=== PATIENT | male | born 1980 | race Caucasian/White ===

== ENCOUNTER 2022-09-07 11:55 | Emergency (ER) | payer MEDICARE, SELFPAY ==
[2022-09-07 11:56] VITALS: BP 131/93; PULSE 99; RESP 18; TEMP 36.6; O2SAT 100; BMI 23.0
--- NOTE | 2022-09-07 12:07 | CT_ITS ---
EXAM: CT ABDOMEN AND PELVIS WITH INTRAVENOUS CONTRAST CLINICAL INDICATION: Left upper quadrant abdominal pain. TECHNIQUE: Helically acquired images were obtained of the abdomen and pelvis with intravenous contrast. This CT exam was performed using one or more of the following dose reduction techniques: automated exposure control, adjustment of the mA and/or kV according to patient size, and/or use of iterative reconstruction technique. This report was created using [employer] report generation technology. CONTRAST: IV 100mL Isovue-370 RADIATION DOSE: CTDIvol = 13.35 mGy, DLP = 257.08 mGy-cm COMPARISON: None. FINDINGS: LOWER THORAX: Unremarkable. Lung bases are clear. No cardiomegaly. No significant pericardial effusion. ABDOMEN: LIVER: Unremarkable. Homogeneous. No focal mass. GALLBLADDER AND BILE DUCTS: Unremarkable. No calcified gallstones. No gallbladder distention or wall edema. No intra- or extrahepatic biliary ductal dilation. PANCREAS: Unremarkable. No focal cystic or solid mass. SPLEEN: Unremarkable. Normal size without focal cystic or solid mass. ADRENALS: Unremarkable. No nodules. KIDNEYS AND URETERS: Unremarkable. Normal renal size and position. No hydronephrosis. STOMACH AND BOWEL: Unremarkable. No stomach or bowel distention. No focal inflammatory change. PELVIS: APPENDIX: Postsurgical absence of the appendix. BLADDER: Unremarkable. REPRODUCTIVE: Unremarkable as visualized. No mass. ABDOMEN and PELVIS: INTRAPERITONEAL SPACE: Unremarkable. No ascites or other fluid collection. No free air. BONES/JOINTS: Unremarkable. No suspicious lytic or blastic abnormality. SOFT TISSUES: Unremarkable. No discrete abdominal or pelvic wall hernia. VASCULATURE: Unremarkable. Abdominal aorta is non-dilated. LYMPH NODES: Unremarkable. No enlarged lymph nodes. CT/Abdomen/Pelvis W IV Cont ONLY IMPRESSION: No acute findings in the abdomen or pelvis. Electronically Signed: Faustino Jha MD at 13:39 EDT ,
--- NOTE | 2022-09-07 12:08 | EDS_ITS ---
HPI HPI - GI History of Present Illness Chief Complaint: Abd Pain Detail of Chief Complaint: 4 months. Informant: patient Abdominal Pain/Flank Pain Onset: Month(s) Context: Gradual Onset Timing: Intermittent Quality: Aching and Cramping Location: Epigastric and LUQ Current Severity: Moderate Maximum Severity: Moderate Worsened by: Nothing Relieved by: Nothing Nausea/Vomiting/Emesis GI Symptom: Positive for Nausea and Vomiting Onset: Month(s) Quality: Positive for Nonbilious Severity: Moderate Diarrhea/Melena/Hematochezia GI Symptom: Positive for Diarrhea; Negative for Melena or Hematochezia Onset: Today Stool Quality: Positive for Loose Severity: Mild Associated Symptoms Associated Symptoms: Negative for Dysuria, Frequency or Hematuria Narrative Narrative: 41-year-old male history of reflux sympathetic dystrophy of his left lower extremity from prior foot fracture. States for months he has had abdominal pain primarily epigastric left upper quadrant and weight loss. He states the last 2 to 3 months he is lost 100 pounds unintentionally. Has had nausea and vomiting episodes since May. In May he was admitted to [facility] had CAT scan, labs and a colonoscopy without any specific diagnosis. He has had a prior appendectomy no other abdominal surgeries. States there is a family history of Crohn's disease both in his grand mother and his father. He denies any fever. Denies any dysuria. Currently is not nauseated but he is having pain. Prior similar symptoms: Yes Recent Illness/Hospitalization: Yes PFSH PFSH Home Medications pantoprazole 40 mg tablet,delayed release (Protonix) 40 mg PO DAILY 14 days #14 tabs 09/07/22 [Rx Last Taken Unknown] Allergy/AdvReac Type Severity Reaction Status Date / Time No Known Allergies Allergy Verified 09/07/22 11:56 Social History Smoking Status: Current every day smoker tobacco type: cigarettes ROS ROS ED ROS Narrative Nausea and vomiting for months. 100 pound weight loss. Loose stools today. No fever. Review of Systems ROS Unobtainable: Denies due to encephalopathy Constitutional Constitutional ED: Denies chills or fever(s) ENT ENT ED: Denies ear pain Cardiovascular Cardiovascular: Denies chest pain Respiratory/Chest Respiratory/Chest: Denies cough or dyspnea Gastrointestinal Gastrointestinal: Reports abdominal pain, diarrhea, nausea and vomiting; Denies constipation or melena Genitourinary Genitourinary ED: Denies hematuria Musculoskeletal Musculoskeletal: Denies arthralgias Integumentary Denies abscess Neurologic Neurologic: Denies headache(s) Psychiatric Psychiatric: Denies anxiety Endocrine Endocrinology: Denies polydipsia or polyphagia Hematologic/Lymphatic Hematologic/Lymphatic: Denies easy bleeding Allergic/Immunologic Allergic/Immunologic ED: Denies mouth swelling or tongue swelling EXAM Physical Exam Narrative Exam Narrative: 41-year-old male vital signs are stable afebrile. He does not look septic or toxic. He is in no distress. H EENT exam unremarkable. Neck nontender no lymphadenopathy. Lungs clear to auscultation bilaterally. Heart regular rhythm no murmur. Rate about 95. Chest wall nontender. Abdomen is soft. Nondistended. Normal bowel sounds no peritoneal signs. He has pain out of proportion to exam in both his epigastric and primarily left upper quadrant. I do not feel any organomegaly or masses. His right upper and right lower quadrants are unremarkable. There is no hernia. No distention or signs of obstruction. Moving all 4 extremities. Nontender no edema. Back nontender. Neurologically he is awake and alert. He is anxious. He has no focal motor deficits. Const Vital Signs: 09/07/22 11:56 Temperature 97.8 F Temperature Source Temporal Pulse Rate 99 Respiratory Rate 18 Blood Pressure 131/93 H Blood Pressure Mean 105 Pulse Ox 100 Oxygen Delivery Method Room Air Positive well nourished and well developed; Negative for obese, cachectic, contractures or unkempt General Appearance ED: well developed and NAD; Negative for unkempt, cachectic, contractures or pallor Nutritional Appearance: Negative for cachectic or obese HEENT Reports moist mucous membranes normocephalic and atraumatic; Negative for trauma or tenderness Eyes PERRL and EOMs intact bilaterally General Eye ED: Negative for pale conjunctiva or scleral icterus Neck no lymphadenopathy, supple and no JVD General: Negative for tenderness Carotids: Negative for other Lymph Lymphatic: Negative for other Resp normal respiratory effort and clear to auscultation bilaterally Effort and Inspection: Negative for respiratory distress Auscultation: Negative for rales, rhonchi or wheezes Cardio regular rate, regular rhythm, S1 normal heart sound, S2 normal heart sound and no murmurs Rate: Negative for bradycardia or tachycardic Rhythm: Negative for abnormal rhythm GI non-tender; Negative for non-distended or no masses GI Narrative: Epigastric and left upper quadrant tenderness. Soft benign abdomen. Inspection: abdominal distention Auscultation: normoactive bowel sounds Palpation: soft and tender; Negative for guarding, rigid, hepatomegaly, splenomegaly, hernia, mass, pulsatile mass or rebound tenderness present Back/Spine no CVA tenderness General Back: Negative for CVA tenderness Cervical Spine: Negative for cervical spine tenderness Thoracic Spine / Upper Back: Negative for thoracic spinal tenderness Lumbar Spine / Lower Back: Negative for lumbar spinal tenderness Coccyx: Negative for other Extremity full ROM General Extremety ED: Negative for edema or tenderness General Extremity: Negative for edema Neuro CN's II-XII intact bilaterally, moves all extremities and no sensory deficits noted Sensorium / Orientation: alert, oriented to person, oriented to place and oriented to time; Negative for orientation impaired, confused, lethargic or stuporous Motor Exam: strength 5/5 throughout Psych mental status grossly normal and thought process normal Appearance: Negative for unkempt Attitude: No agitated Mood & Affect: Negative for depressed, anxious or tearful Skin no wounds General Skin Exam: Negative for jaundice or pallor Lesions: no lesions Rashes: no rashes Trauma: Negative for abrasion Nails: Negative for discolored MDM MDM MDM Narrative Medical decision making narrative: 41-year-old male months of abdominal pain with reported 100 pound weight loss in the last 2 to 3 months. His pain is out of proportion exam of both epigastric and left upper quadrant. He has a soft nondistended abdomen. I do not appreciate any hepatomegaly or splenomegaly. We treated with Toradol for pain. Fluid bolus. Screening labs and a CAT scan. He reportedly had a work-up done in another hospital near [place] in May which was unremarkable. Repeat exam at 1:05 PM patient's abdomen is benign but is complaining of pain and tearful. He was already given Toradol. I do not think narcotics at this time are a good idea given his get completely unremarkable labs. I am waiting for the CAT scan results which I already reviewed and are waiting for the radi ologist interpretation. . Repeat exam at 1:55 PM patient doing fine. His abdomen is completely benign. Nondistended. Complains the left upper quadrant pain is not reproducible. I went over all his test with him including all the blood work and his CAT scan. He will be discharged home on Protonix. Follow-up with Dr. Aguirre of GI. He may or may not need upper scope. Lab Data Attestation: I reviewed the patient's lab results. Lab results narrative: CBC unremarkable. White count is 16.3 H&H is 16.8 and 49. Platelets 282. Electrolytes unremarkable gap at 2 normal BUN of 17 creatinine 1.15. Liver enzymes are normal. Lipase normal at 96. CAT scan of the abdomen pelvis with IV contrast read by the radiologist and reviewed by me shows no acute abnormality. Labs: Laboratory Results - last 24 hr 09/07/22 09/07/22 12:15 12:15 WBC 6.3 RBC 5.62 Hgb 16.8 H Hct 49.5 MCV 88.1 MCH 29.9 MCHC 33.9 RDW Std Deviation 40.4 RDW Coeff of Lorraine 12.3 Plt Count 282 MPV 10.0 Immature Gran % (Auto) 0.600 Neut % (Auto) 66.2 Lymph % (Auto) 25.8 Darke % (Auto) 7.2 Eos % (Auto) 0.0 Baso % (Auto) 0.2 Absolute Neuts (auto) 4.1 Absolute Lymphs (auto) 1.61 Nucleated RBC % 0 Sodium 141 Potassium 3.7 Chloride 106 Carbon Dioxide 33.0 H Anion Gap 2 L BUN 17 Creatinine 1.15 Estim Creat Clear Calc 71.50 Est GFR (MDRD) Af Amer 90 Est GFR (MDRD) Non-Af 75 BUN/Creatinine Ratio 14.8 Glucose 108 H Calcium 9.9 Total Bilirubin 0.50 AST 28 ALT 83 H Alkaline Phosphatase 59 Total Protein 8.5 H Albumin 4.8 Globulin 3.7 Albumin/Globulin Ratio 1.3 Lipase 96 Radiography Diagnostic Testing: Clinical Impression(s) from Imaging Studies Abdomen/Pelvis CT 09/07/22 12:07 IMPRESSION: No acute findings in the abdomen or pelvis. Electronically Signed: Faustino Jha MD at 13:39 EDT , Discharge Plan Triage Chief Complaint: Abd Pain ED Provider: Steven Fitzpatrick Dx/Rx/DC Orders Clinical Impression: Abdominal pain Instructions: Abdominal Pain Prescriptions: New pantoprazole [Protonix] 40 mg tablet,delayed release (DR/EC) 40 mg PO DAILY 14 Days Qty: 14 0RF Primary Care Provider: Care Physician,No Primary Referrals: Virginia Smith DO [Med Staff - Industrial Engineering Intern] - Jean Aguirre DO [Med Staff - Active Staff] - As soon as possible Activity Restrictions/Additional Instructions: Start the Protonix daily. This will help with his reflux which is indigestion, gastritis which is inflammation of your stomach or possibly ulcer. All your blood work today and CAT scan was normal. Outpatient follow-up with GI. Patient was referred to Dr. Aguirre. Disposition Disposition: Home, Self Care
[2022-09-07] MEDS: Ketorolac 30 MG/ML Syringe IV (12:23)
[2022-09-07 12:27] LABS: Absolute Lymphocyte Count 1.61 X10^3/uL (0.83-4.51); Absolute Neutrophil Count 4.1 X10^3/uL (2.0-7.7); Basophil# 0.01 X10^3/uL; Basophil% 0.2 % (0-1); Hematocrit 49.5 % (40-54); Hemoglobin 16.8 g/dL (13.0-16.5); Lymphocyte # 1.61 X10^3/ul (0.83-4.51); Lymphocyte % 25.8 % (19-41); Mean Corp Hgb Conc 33.9 g/dL (32-36); Mean Corpuscular Hgb 29.9 pg (27.0-32.0); Mean Corpuscular Volume 88.1 fL (80-94); Monocyte# 0.45 X10^3/uL; Monocyte% 7.2 % (0-10); NRBC Flagged by Analyzer 0 % (0-5); Neutrophil # 4.14 X10^3/uL (2.7-7.7); Neutrophil % 66.2 % (47-70); Platelet Count 282 K/mm3 (150-450); RBC Distribution Width CV 12.3 % (11.6-14.6); RBC Distribution Width SD 40.4 fl (35.1-43.9); Red Blood Count 5.62 M/mm3 (4.6-6.2); White Blood Count 6.3 K/mm3 (4.4-11.0)
[2022-09-07 12:50] LABS: ALB/GLOB Ratio 1.3 RATIO (0.9-2.4); AST(SGOT) 28 U/L (15-37); Alanine Aminotransfer ALT/SGPT 83 U/L (16-61); Albumin, Serum 4.8 g/dL (3.2-5.0); Alkaline Phosphatase 59 U/L (45-117); Anion Gap 2 (5-15); BUN 17 mg/dL (7-18); BUN/Creat Ratio 14.8 RATIO (10-20); Calcium,Total 9.9 mg/dL (8.5-10.1); Chloride 106 mmol/L (98-107); Creatinine, Serum 1.15 mg/dL (0.70-1.30); EST Glomerular Filtration Rate 75 mL/min (>60); Est Glom Filt Rate - Afr Amer 90 mL/min (>60); Globulin 3.7 g/dL (2.2-4.2); Glucose 108 mg/dL (74-106); Lipase 96 U/L (73-393); Potassium 3.7 mmol/L (3.5-5.1); Protein, Total 8.5 g/dL (6.4-8.2); Sodium Level 141 mmol/L (136-145)
[2022-09-07] MEDS: Pantoprazole Sodium 40 MG Tablet PO (13:23)
[2022-09-07] MEDS: Mag Hydrox/Al Hydrox/Simeth 30 ML UDC PO (13:24)
== END 2022-09-07 14:09 | disposition home or self-care (01) ==
PROVIDERS: Emergency Provider Emergency Medicine; Visit Provider Emergency Medicine
DX: R10.9 Unspecified abdominal pain (principal); F17.210 Nicotine dependence, cigarettes, uncomplicated; R19.7 Diarrhea, unspecified; R11.2 Nausea with vomiting, unspecified
CPT/HCPCS: 74177; 80053; 83690; 85025; 96374; 99283; Q9967; A4216

== ENCOUNTER → 2022-10-10 | Outpatient (CLI) | payer MEDICARE, SELFPAY ==
[2022-10-10 12:32] LABS: Absolute Neutrophil Count 2.4 X10^3/uL (2.0-7.7); Basophil# 0.02 X10^3/uL; Basophil% 0.5 % (0-1); Eosinophil# 0.01 X10^3/uL; Eosinophils% 0.2 % (0-5); Hematocrit 50.6 % (40-54); Hemoglobin 16.7 g/dL (13.0-16.5); Mean Corpuscular Hgb 29.4 pg (27.0-32.0); Mean Corpuscular Volume 89.1 fL (80-94); Mean Platelet Vol. 10.4 fl (6.2-12.0); Monocyte# 0.42 X10^3/uL; Monocyte% 9.5 % (0-10); NRBC Flagged by Analyzer 0 % (0-5); Neutrophil # 2.37 X10^3/uL (2.7-7.7); Neutrophil % 53.3 % (47-70); Platelet Count 269 K/mm3 (150-450); RBC Distribution Width CV 12.5 % (11.6-14.6); RBC Distribution Width SD 41.1 fl (35.1-43.9); Red Blood Count 5.68 M/mm3 (4.6-6.2); White Blood Count 4.4 K/mm3 (4.4-11.0)
[2022-10-10 12:49] LABS: Erythrocyte Sedimentation Rate 5 mm/hr (0-20)
[2022-10-10 12:50] LABS: Hemoglobin A1c 4.9 % (3.8-5.6)
[2022-10-10 13:19] LABS: ALB/GLOB Ratio 1.1 RATIO (0.9-2.4); AST(SGOT) 33 U/L (15-37); Alanine Aminotransfer ALT/SGPT 65 U/L (16-61); Albumin, Serum 4.5 g/dL (3.2-5.0); Alkaline Phosphatase 53 U/L (45-117); Anion Gap 3 (5-15); BUN 22 mg/dL (7-18); CRP < 2.90 mg/L (0.0-3.0); Calcium,Total 9.9 mg/dL (8.5-10.1); Chloride 104 mmol/L (98-107); EST Glomerular Filtration Rate 79 mL/min (>60); Est Glom Filt Rate - Afr Amer 95 mL/min (>60); Glucose 99 mg/dL (74-106); LDH 79 U/L (87-241); Potassium 4.4 mmol/L (3.5-5.1); Protein, Total 8.5 g/dL (6.4-8.2); Sodium Level 136 mmol/L (136-145)
[2022-10-10 13:22] LABS: HIV - WCH Non-Reactive (Nonreactive)
[2022-10-11 15:08] LABS: Anti-Centromere B Ab <0.2 AI (0.0-0.9); Anti-Chromatin <0.2 AI (0.0-0.9); Anti-Jo <0.2 AI (0.0-0.9); Anti-Scleroderma-70 AB <0.2 AI (0.0-0.9); Anti-dsDNA Ab 1 IU/mL (0-9); RNP Ab <0.2 AI (0.0-0.9); SJOGREN'S Anti-SS-A test < 0.2 AI (0.0-0.9); SJOGREN'S Anti-SS-B test < 0.2 AI (0.0-0.9); Smith Ab <0.2 AI (0.0-0.9)
[2022-10-11 16:09] LABS: Endomysial Antibody IgA Negative (Negative); Immunoglobulin A 164 mg/dL (90-386); t-Transglutaminase IgA <2 U/mL (0-3)
[2022-10-16 15:08] LABS: Pancreatic Elastase, Fecal > 500 (>200)
[2022-10-17 17:07] LABS: Calprotectin, Stool 17 ug/g (0-120)
== END | disposition home or self-care (01) ==
PROVIDERS: Referring Provider Internal Medicine Gastroenterology; Visit Provider Internal Medicine Gastroenterology
DX: R63.4 Abnormal weight loss (principal); R10.12 Left upper quadrant pain; K58.9 Irritable bowel syndrome, unspecified
CPT/HCPCS: 36415; 80053; 82274; 82653; 82784; 82785; 83036; 83516; 83615; 83630; 83993; 84165; 85025; 85652; 86140; 86225; 86235; 86255; 86256; 86334; 86703; 87177; 87209; 87329; 87506

== ENCOUNTER → 2022-11-04 | Outpatient (CLI) | payer MEDICARE, SELFPAY ==
[2022-11-04 12:51] LABS: ALB/GLOB Ratio 1.1 RATIO (0.9-2.4); AST(SGOT) 28 U/L (15-37); Alanine Aminotransfer ALT/SGPT 56 U/L (16-61); Albumin, Serum 4.2 g/dL (3.2-5.0); Alkaline Phosphatase 65 U/L (45-117); Anion Gap 8 (5-15); BUN 13 mg/dL (7-18); Calcium,Total 9.3 mg/dL (8.5-10.1); Chloride 106 mmol/L (98-107); Cholesterol 212 mg/dL (200); Creatinine, Serum 0.76 mg/dL (0.70-1.30); EST Glomerular Filtration Rate 119 mL/min (>60); Est Glom Filt Rate - Afr Amer 144 mL/min (>60); Globulin 3.7 g/dL (2.2-4.2); Glucose 87 mg/dL (74-106); High Density Lipoprotein 62 mg/dL; PSA,Total- Diagnostic 0.62 ng/mL (0.0-4.0); Potassium 4.5 mmol/L (3.5-5.1); Protein, Total 7.9 g/dL (6.4-8.2); Sodium Level 144 mmol/L (136-145); Triglycerides 171 mg/dL; Very Low Density Lipoprotein 34 mg/dL (5-40)
== END | disposition home or self-care (01) ==
LOC: BIMLAB 10:30
PROVIDERS: PCP Internal Medicine; Referring Provider Internal Medicine; Visit Provider Internal Medicine
DX: R33.9 Retention of urine, unspecified (principal); Z13.6 Encounter for screening for cardiovascular disorders; R10.12 Left upper quadrant pain
CPT/HCPCS: 36415; 80053; 80061; 84153